=== PATIENT | female | born 1950 | race Caucasian/White ===

== ENCOUNTER 2021-05-21 13:27 | Outpatient (CLI) | payer MEDICARE | END 2021-05-21 13:28 | disposition home or self-care (01) | LOC: CSHMAMMO 13:27 | PROVIDERS: ATTEND Family Medicine | DX: R59.0 Localized enlarged lymph nodes (principal); R92.1 Mammographic calcification found on diagnostic imaging of breast; Z85.3 Personal history of malignant neoplasm of breast; Z80.3 Family history of malignant neoplasm of breast; Z80.41 Family history of malignant neoplasm of ovary | CPT/HCPCS: 38505; 76642; 77066; G0279; 88305; 88307 ==

== ENCOUNTER 2023-05-26 10:34 | Outpatient (CLI) | payer MEDICARE, OTHER | END 2023-05-26 10:35 | disposition home or self-care (01) | LOC: CSHCT 10:34 | PROVIDERS: ATTEND Internal Medicine Hematology & Oncology | DX: C50.812 Malignant neoplasm of overlapping sites of left female breast (principal); C50.811 Malignant neoplasm of overlapping sites of right female breast | CPT/HCPCS: 71260; 74177; 82565 ==